=== PATIENT | male | born 1935 | race Caucasian/White ===

== ENCOUNTER 2017-03-23 10:40 | Inpatient (IN) | payer MEDICARE, BC ==
[~2017-03-23] VITALS: Ht 165.1 cm; Wt 74.8 kg
--- NOTE | 2017-03-23 10:47 | NUR ---
AAOX,3 BBRA FROM HOME FOR [facility]IG[facility] X 2 HOURS CALL CENTER TRAINER. RESP IS EVEN AND UNLABORED WITH NAD NOTED. DENIES CHEST PAIN. SKIN IS WARM AND DRY. PLACED ON MONITOR. ASSISTED TO HOSPITAL GOWN. PLACED ON MONITOR. AWAITING MD FOR EVAL.
[2017-03-23] MEDS ORDERED: MECLIZINE HCL 25 MG TABLET ONE (11:21)
[2017-03-23] MEDS ORDERED: ONDANSETRON HCL/PF 4 MG/2 ML VIAL ONE (11:22)
[2017-03-23] MEDS ORDERED: IV SET PRIMARY 1 EA INFUS.SET MC ONE (11:22)
[2017-03-23] MEDS ORDERED: DIAZEPAM 5 MG/ML 2 ML DISP.SYRIN ONE (11:22)
[2017-03-23] MEDS ORDERED: IV NS 0.9% 1,000 ML ONE (11:22)
[2017-03-23 11:27] LABS: BASOPHILS % (AUTO) 0.2 % (0.0-2.0); EOSINOPHILS % (AUTO) 0.1 % (0.0-6.0); HEMATOCRIT 54 % (39-51); HEMOGLOBIN 18.2 g/dL (13.5-17.5); LYMPHOCYTES # (AUTO) 0.8 /CMM (0.8-4.8); LYMPHOCYTES % (AUTO) 9.4 % (20.0-44.0); MEAN CORPUSCULAR HEMOGLOBIN 30 PG (26.0-33.0); MEAN CORPUSCULAR HGB CONC 34 g/dl (31.0-36.0); MEAN CORPUSCULAR VOLUME 89 fL (80-96); MONOCYTES # (AUTO) 0.1 /CMM (0.1-1.30); MONOCYTES % (AUTO) 1.8 % (2.0-12.0); NEUTROPHILS # (AUTO) 7.4 /CMM (1.8-8.9); NEUTROPHILS % (AUTO) 88.5 % (43.0-81.0); PLATELET COUNT (AUTO) 187 /CMM (150-450); RDW COEFFICIENT OF VARIATION 13.4 (11.5-15.0); RED BLOOD CELL COUNT(AUTO) 6.13 MIL/uL (4.5-6.0); WHITE BLOOD COUNT (AUTO) 8.3 K/uL (4.3-11.0)
[2017-03-23] MEDS ORDERED: ONDANSETRON HCL/PF - ER 4 MG/2 ML VIAL IV ONE (11:30)
[2017-03-23] MEDS ORDERED: DIAZEPAM 5 MG/ML 2 ML DISP.SYRIN IV ONE (11:30)
[2017-03-23] MEDS ORDERED: IV NS 0.9% 1,000 ML BAG IV ONE (11:30)
[2017-03-23] MEDS ORDERED: MECLIZINE HCL 12.5 MG TABLET PO ONE (11:30)
[2017-03-23 11:41] LABS: CALCIUM, SERUM 8.4 mg/dL (8.5-10.1); CARBON DIOXIDE 25 mmol/L (21-32); CHLORIDE 105 mmol/L (98-107); CREATININE 1.3 mg/dL (0.6-1.3); GLUCOSE 164 mg/dL (74-106); POTASSIUM 3.9 mmol/L (3.5-5.1); SODIUM SERUM 140 mmol/L (136-145); UREA NITROGEN, BLOOD 17 mg/dL (7-18)
[2017-03-23 11:45] LABS: INR 0.97 (0.87-1.13); PROTHROMBIN TIME 10.1 SECS (9.5-12.7)
--- NOTE | 2017-03-23 11:45 | NUR ---
Patient is resting comfortably in bed with eyes closed. Easily aroused. VSS
[2017-03-23 11:48] LABS: ALANINE AMINOTRANSFERASE 36 U/L (12-78); ALBUMIN 3.9 g/dL (3.4-5.0); ALKALINE PHOSPHATASE 71 U/L (46-116); ASPARTATE AMINOTRANSFERASE 15 U/L (15-37); BILIRUBIN,DIRECT 0.1 mg/dL (0.0-0.2); BILIRUBIN,TOTAL 0.5 mg/dL (0.2-1.0); TOTAL PROTEIN, SERUM 7.5 g/dL (6.4-8.2)
[2017-03-23 11:49] LABS: TROPONIN I < 0.017 ng/mL (0.00-0.056)
--- NOTE | 2017-03-23 12:35 | NUR ---
Patient is resting comfortably in bed with eyes closed. Easily aroused. VSS
--- NOTE | 2017-03-23 14:18 | NUR ---
REPORT GIVEN RENETTA ROSE FOR VISHAL MS 203-1
--- NOTE | 2017-03-23 14:25 | NUR ---
RN MS NOTES RECEIVED PATIENT FROM E.R. DEPARTMENT VIA [id number], IN STABLE CONDITION, NO FURTHER EPISODE OF DIZZINESS, DENIES PAIN, PATIENT'S SKIN INTACT, ASSESSMENT COMPLETED, BELONGINGS RECONCILED, PIV PATENT AND INTACT, NEEDS ATTENDED, CALL LIGHT WITHIN REACH WILL CONTINUE TO MONITOR.
[2017-03-23] MEDS ORDERED: FOLI-65 PO (14:34)
[2017-03-23] MEDS ORDERED: RANI150T8 PO (14:34)
[2017-03-23 14:50] VITALS: BP 130/97
[2017-03-23] MEDS ORDERED: HYDROCODONE/APAP 5/325MG 1 EACH TABLET PO PRN (15:00)
[2017-03-23] MEDS ORDERED: MAGNESIUM HYDROXIDE 30 ML UDC PO PRN (15:00)
[2017-03-23] MEDS ORDERED: ZOLPIDEM TARTRATE 5 MG TABLET PO PRN (15:00)
[2017-03-23] MEDS ORDERED: ONDANSETRON HCL/PF 4 MG/2 ML VIAL IVP PRN (15:00)
[2017-03-23] MEDS ORDERED: ACETAMINOPHEN 325 MG TABLET PO PRN (15:00)
[2017-03-23] MEDS ORDERED: MAG HYDROX/AL HYDROX/SIMETH 30 ML UDC PO PRN (15:00)
[2017-03-23] MEDS ORDERED: Z GUARD REMEDY 2 OZ OINT TP PRN (15:00)
[2017-03-23] MEDS ORDERED: MECLIZINE HCL 12.5 MG TABLET PO PRN (15:00)
[2017-03-23 15:34] LABS: AMYLASE 97 U/L (25-115); LIPASE 113 U/L (73-393)
--- NOTE | 2017-03-23 15:55 | NUR ---
RN MS NOTES RECEIVED ORDER FROM DR. MARTÍNEZ TO TRANSFER PATIENT TO TELEMETRY.
[2017-03-23 16:00] VITALS: BP 132/82
--- NOTE | 2017-03-23 16:15 | NUR ---
RN MS NOTES REPORT GIVEN TO KENDALL JACKSON ON TELE FLOOR.
--- NOTE | 2017-03-23 16:25 | NUR ---
RN MS NOTES PATIENT TRANSFERRED TO TELE IN ROOM 323-1, RECEIVED BY KENDALL JACKSON. PATIENT IN STABLE CONDITION.
--- NOTE | 2017-03-23 16:30 | NUR ---
DAY HABILITATION SUPERVISOR NOTES RECEIVED PT FROM ROSE JACKSON, PT AWAKE, ALERT AND ORIENTED, DENIES PAIN, NOT IN DISTRESS, ABLE TO WALK FROM WHEELCHAIR TO BED, WITH STEADY GAIT, DENIES DIZZINESS OR HEADACHE, ASSISTED TO BED, ROOM SET UP ORIENTATION PROVIDED, CALL LIGHT WITHIN REACH, NEEDS ATTENDED.
[2017-03-23] MEDS ORDERED: IV SET PRIMARY PUMP SET 1 EA INFUS.SET MC ONE (17:33)
[2017-03-23] MEDS: IV NS 0.9% 1,000 ML IV PRN (17:41)
--- NOTE | 2017-03-23 18:04 | NUR ---
COMMERCIAL APPRAISER NOTES PT IN BED, AWAKE, EATING DINNER, AT BEDSIDE, IV FLUIDS INFUSING WELL, SALINE LOCK AT RIGHT A/C INTACT AND PATENT, NO S/S OF INFILTRATION NOTED, PLAN OF CARE DISCUSSED WITH PT, VERBALIZED UNDERSTANDING.
--- NOTE | 2017-03-23 19:15 | NUR ---
TELE/RN OPENING NOTES RECEIVED PT ASLEEP, BREATHING EVEN AND UNLABORED. NO S/S OF SOB. PAIN OR DISTRESS NOTED. ON TELE MONITOR, DISPLAYING SINUS RHYTHM WITH HR AT 74. PT RECEIVING IVF 75ML/HR. BED IN LOW/LOCKED POSITION WITH CALL LIGHT IN REACH. BED RAILS UP. WILL CONTINUE TO MONITOR
[2017-03-23 20:00] VITALS: BP 134/68
[2017-03-23 20:27] LABS: APPEARANCE,URINE CLEAR (CLEAR); BILIRUBIN,URINE NEGATIVE (NEGATIVE); BLOOD, URINE 1+ Ery/uL (NEGATIVE); COLOR,URINE YELLOW (YELLOW); KETONES,URINE NEGATIVE (NEGATIVE); LEUKOCYTE ESTERASE ,URINE NEGATIVE (NEGATIVE); NITRITE, URINE NEGATIVE (NEGATIVE); PH,URINE 6.5 (5.0-8.0); PROTEIN,URINE NEGATIVE (NEGATIVE); UGLUCOSE NEGATIVE (NEGATIVE); UROBILINOGEN,URINE 0.2 EU/dL (0.2)
[2017-03-23 21:39] LABS: BACTERIA,URINE None seen /HPF (None Seen); SQUAMOUS EPITHELIAL CELL,UR None Seen /HPF (None Seen); WBC,URINE NONE SEEN /HPF (0-3)
--- NOTE | 2017-03-23 21:58 | NUR ---
TELE/RN NOTES PT REFUSED SCHEDULED [facility]. SAYS THAT HE TAKES SOMETHING DIFFERENT AT HOME (CANT REMEMBER THE NAME). EDUCATE PROVIDED, PT STILL REFUSED.
[2017-03-23] MEDS ORDERED: FAMOTIDINE (20 MG) 20 MG TABLET PO PRN (22:00)
[2017-03-23] MEDS ORDERED: SIMVASTATIN 20 MG TABLET PO SCH (22:00)
[2017-03-24] VITALS: BP 115/76
[2017-03-24] MEDS: IV NS 0.9% 1,000 ML IV PRN (06:01)
--- NOTE | 2017-03-24 06:56 | NUR ---
TELE/RN CLOSING NOTES PT ASLEEP, EASILY AROUSABLE TO NAME. A/OX4, ON ROOM AIR. DENIES SOB, PAIN OR DISTRESS AT THIS TIME. ON TELE MONITOR, READING SINUS MARIANGEL WITH HEART RATE AT 55. IV TO RAC PATENT AND INTACT RUNNING IVF ORDERED. MADE PT COMFORTABLE THROUGHOUT SHIFT. ALL NEEDS MET AND ATTENDED. NO CHANGES OVERNIGHT. BED IN LOW/LOCKED POSITION WITH CALL LIGHT IN REACH. BED RAILS UPX2. WILL ENDORSE TO AM SHIFT VISHAL.
[2017-03-24 06:58] VITALS: BP 133/74
--- NOTE | 2017-03-24 07:17 | NUR ---
SYSTEM VALIDATION ENGINEER INITIAL NOTES REPORT RECEIVED AT THE BEDSIDE. PATIENT IS SLEEPING. NO SOB OR DISTRESS NOTED AT THIS TIME. PATIENT DOES NOT APPEAR TO BE IN PAIN, NO FACIAL GRIMACE NOTED. HEART RATE IS SR AT 60. BED IN A LOW POSITION, CALL LIGHT WITHIN PATIENT REACH. WILL CONTINUE TO MONITOR.
[2017-03-24] MEDS ORDERED: PANTOPRAZOLE 40 MG TABLET.DR PO SCH (07:30)
[2017-03-24 07:50] VITALS: BP 140/76
[2017-03-24 07:55] VITALS: BP 133/73
[2017-03-24 08:00] VITALS: BP_SYST 132; BP_SYST 140; BP_DIAS 72; BP_DIAS 76
[2017-03-24 08:05] LABS: BASOPHILS % (AUTO) 0.4 % (0.0-2.0); EOSINOPHILS # (AUTO) 0.1 /CMM (0.0-0.7); EOSINOPHILS % (AUTO) 2.2 % (0.0-6.0); HEMATOCRIT 48 % (39-51); HEMOGLOBIN 16.1 g/dL (13.5-17.5); LYMPHOCYTES # (AUTO) 1.7 /CMM (0.8-4.8); LYMPHOCYTES % (AUTO) 29.3 % (20.0-44.0); MEAN CORPUSCULAR HEMOGLOBIN 30 PG (26.0-33.0); MEAN CORPUSCULAR HGB CONC 34 g/dl (31.0-36.0); MEAN CORPUSCULAR VOLUME 88 fL (80-96); MONOCYTES # (AUTO) 0.4 /CMM (0.1-1.30); MONOCYTES % (AUTO) 7.3 % (2.0-12.0); NEUTROPHILS # (AUTO) 3.5 /CMM (1.8-8.9); NEUTROPHILS % (AUTO) 60.8 % (43.0-81.0); PLATELET COUNT (AUTO) 173 /CMM (150-450); RDW COEFFICIENT OF VARIATION 14.5 (11.5-15.0); RED BLOOD CELL COUNT(AUTO) 5.44 MIL/uL (4.5-6.0); WHITE BLOOD COUNT (AUTO) 5.8 K/uL (4.3-11.0)
[2017-03-24 08:12] LABS: ALBUMIN 3.1 g/dL (3.4-5.0); BILIRUBIN,TOTAL 0.7 mg/dL (0.2-1.0); CALCIUM, SERUM 8.1 mg/dL (8.5-10.1); CREATININE 1.2 mg/dL (0.6-1.3); MAGNESIUM 1.9 mg/dL (1.8-2.4); PHOSPHORUS 2.4 mg/dL (2.5-4.9); POTASSIUM 4.4 mmol/L (3.5-5.1); TOTAL PROTEIN, SERUM 6.3 g/dL (6.4-8.2)
[2017-03-24 08:20] LABS: PREALBUMIN 29.5 MG/DL (18.0-35.7); THYROID STIMULATING HORMONE 1.709 uIU/mL (0.358-3.74)
[2017-03-24] MEDS ORDERED: ASPIRIN 81 MG TAB.CHEW PO SCH (09:00)
[2017-03-24] MEDS ORDERED: MULTIPLE VIT/MINERALS 1 EA TABLET PO SCH (09:00)
[2017-03-24] MEDS ORDERED: K PHOS NEUTRAL 250 MG TABLET PO ONE (10:00)
--- NOTE | 2017-03-24 14:23 | NUR ---
MS OUTREACH SPECIALIST NOTE DISCHARGE INSTRUCTIONS GIVEN TO THE PATIENT AND ABLE TO UNDERSTAND. NO SOB OR DISTRESS NOTED AT THIS TIME. ALL PAPERWORK SIGNED AND BELONGINGS ACCOUNTED FOR. MEDICATIONS RETURNED TO THE PATIENT. IV DISCONNECTED AND PRESSURE APPLIED. NO BLEEDING NOTED AT THE SITE. PICTURES NOT NEEDED PATIENT SKIN IS INTACT. PATIENT LEFT IN STABLE CONDITION, AMBULATORY, WITH DAUGHTER. PATIENT LEFT IN STABLE CONDITION.
[2017-03-24] MEDS ORDERED: MECL12.582 PO (16:23)
[2017-03-24] MEDS ORDERED: ASPI81TA2 PO (16:23)
== END 2017-03-24 14:25 | disposition home or self-care (01) | DRG 641 ==
LOC: ER 10:43 → EDBD 10:43 → MEDSG2 13:53 → TELE 16:25 → MED 03-24 10:52
PROVIDERS: ADMIT Internal Medicine; ATTEND Internal Medicine
DX: E86.0 Dehydration (principal); H81.49 Vertigo of central origin, unspecified ear; E87.8 Other disorders of electrolyte and fluid balance, not elsewhere classified
CPT/HCPCS: 36415; 70450-TC; 71010-TC; 80048-TC; 80053-TC; 80061-TC; 80076-TC; 81000-TC; 82150-TC; 82553-TC; 82746; 83540-TC; 83690-TC; 83735-TC; 84100-TC; 84134-TC; 84443-TC; 84484-TC; 85025-TC; 85730-TC; 87040-TC; 87081-TC; 87086-TC; 93307-TC; 93880-TC; 97001-TC; A4606; J2405; J3360; J7030; J8597; Z7610